=== PATIENT | female | born 1945 | race Caucasian/White ===

== ENCOUNTER → 2017-03-28 | Outpatient (CLI) | payer OTHER ==
--- NOTE | 2017-03-29 09:24 | MRI ---
HISTORY: Cervical spondylosis, chronic neck pain Study: MRI cervical spine without contrast Comparison: None Technique: Multiplanar multisequence MRI of the cervical spine was obtained utilizing standard [facility] protocol. Findings: Alignment of the cervical spine is normal. No abnormal cord or marrow signal is identified. Vertebr al body heights are preserved without evidence of fracture. The prevertebral and paraspinal soft tiss ues are unremarkable. Multilevel spondylosis is present. C2 -- C3: No significant stenosis. C3 -- C4: Moderate left facet arthropathy. No significant stenosis. C4 -- C5: No significant stenosis identified. C5 -- C6: Mild central disc osteophyte ridge without significant stenosis. C6 -- C7: No significant stenosis. C7 -- T1: No significant stenosis. IMPRESSION: Mild degenerative changes of the cervical spine as detailed above without significant stenosis identi fied. Reported By:
--- NOTE | 2017-03-29 09:35 | MRI ---
HISTORY: Spondylosis lumbar region, chronic low back pain Study: MRI lumbar spine without contrast Comparison: None Technique: Multiplanar multi-sequence MRI of the lumbar spine was obtained. Sagittal T1, sagittal T2 , and stir weighted images, axial T1, and axial T2 images were obtained. Findings: The lumbar spine demonstrates normal alignment. No abnormal cord or marrow signal identified. The co nus of the cord terminates normally. The surrounding soft tissues are within normal limits. Vertebra l body heights are preserved. Mild multilevel spondylosis and disc desiccation is present. T12 -- L1: No significant stenosis. L1 -- L2: Mild facet degenerative changes without significant stenosis. L2 -- L3: Mild facet degenerative changes and minimal disc bulge without significant stenosis. L3 -- L4: [id number] facet degenerative changes and minimal disc bulge without significant sten osis. L4 -- L5: Moderate facet arthropathy and mild disc bulge noted without significant stenosis. L5 -- S1: Mild disc bulge and facet degenerative changes with mild left foraminal narrowing. IMPRESSION: 1. Multilevel spondylosis and facet arthropathy without significant foraminal or spinal stenosis iden tified. Reported By:
--- NOTE | 2017-04-02 15:49 | MRI ---
MRI left hip without contrast Indication: Chronic left hip pain Technique: Multisequence, multiplanar MR images of the left hip and pelvis were obtained without IV c ontrast. Comparison: None Findings: The exam is mildly degraded by patient motion artifact. Given these limitations, marrow sig nal is normal. No acute fracture, suspicious osseous lesion or osteonecrosis of either hip is identif ied. There is mild degenerative arthrosis of the bilateral hips, as evidenced by mild superior joint space narrowing. No significant effusion or discrete paralabral cyst of either hip is identified to s uggest labral tear. Mild DJD of the bilateral SI joints, pubic symphysis and facet arthropathy of the lower lumbar spine are also noted. The visualized myotendinous structures about the bilateral hips and pelvis are normal. There is moder ate diverticulosis of the visualized descending and sigmoid colon without definite evidence of acute inflammation. There is a round 2.7 cm hypointense lesion within the uterine fundus, likely a fibroid. The remaining imaged contents of the lower abdomen and pelvis are grossly unremarkable. No free flui d or lymphadenopathy is visualized. Impression: 1. 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 2. Moderate colonic diverticulosis 3. Fibroid uterus. Reported By:
== END ==
LOC: RAD 08:26
PROVIDERS: ATTEND Psychiatry & Neurology Neurology
DX: M47.812 Spondylosis without myelopathy or radiculopathy, cervical region (principal); M47.896 Other spondylosis, lumbar region; M16.0 Bilateral primary osteoarthritis of hip
CPT/HCPCS: 72141; 72148; 73721